=== PATIENT | female | born 1995 | race Caucasian/White ===

== ENCOUNTER 2018-10-27 10:35 | Inpatient (IN) | payer OTHER ==
[2018-10-27] VITALS (17 sets, daily range): BP systolic 85–118; BP diastolic 43–100
[~2018-10-27] VITALS: Ht 162.6 cm; Wt 72.6 kg
[2018-10-27] MEDS ORDERED: FOLI-43 PO (10:43)
[2018-10-27] MEDS ORDERED: PREN-99 MT (10:43)
[2018-10-27] MEDS ORDERED: OMEG100016 PO (10:44)
[2018-10-27] MEDS ORDERED: DEXT 5%/LR + PITOCIN 20UNITS/L 1,000 ML IV SCH ×2 (11:40→16:30)
[2018-10-27] MEDS ORDERED: MISOPROSTOL 100MCG TABLET VG SCH (11:45)
[2018-10-27] MEDS ORDERED: BUTORPHANOL TARTRATE 2 MG/ML VIAL IV PRN (11:45)
[2018-10-27] MEDS ORDERED: CARBOPROST TROMETHAMINE 250 MCG/ML AMPUL IM PRN (11:45)
[2018-10-27] MEDS ORDERED: LIDOCAINE HCL 1% 20ML VIAL (Pyxis) INJ INFIL SCH (11:45)
[2018-10-27] MEDS: LACTATED RINGERS 1,000 ML IV SCH ×2 (11:45→12:27)
[2018-10-27] MEDS ORDERED: NALOXONE HCL 0.4 MG/ML 1ML VIAL IM PRN (11:45)
[2018-10-27] MEDS ORDERED: METHYLERGONOVINE MALEATE 0.2 MG/ML IM PRN (11:45)
[2018-10-27 12:17] LABS: CLARITY URINE CLEAR (CLEAR); COLOR URINE YELLOW (YELLOW); KETONES URINE NEGATIVE (NEGATIVE); LEUKOCYTE ESTERASE URINE NEGATIVE (NEGATIVE); NITRITE URINE NEGATIVE (NEGATIVE); OCCULT BLOOD URINE NEGATIVE (NEGATIVE); PH URINE 7.5 (4.5-8.0); PROTEIN URINE NEGATIVE (NEGATIVE); SPECIFIC GRAVITY URINE 1.018 (1.005-1.030); UROBILINOGEN URINE 0.2 E.U./dL (0.2-1.0)
[2018-10-27 12:19] LABS: HEMATOCRIT. 41.9 % (36.0-48.0); HEMOGLOBIN. 14.1 g/dL (12.0-16.0); MEAN CORPUSCULAR HEMOGLOBIN 30.6 pg (28.0-32.0); MEAN CORPUSCULAR VOLUME 91.3 fL (81.0-99.0); MEAN PLATELET VOLUME 11.6 fl (7.4-10.4); PLATELET 193 x1000/uL (130-400); RED BLOOD CELL COUNT 4.59 mill/uL (4.2-5.4)
[2018-10-27] MEDS ORDERED: ROPIVACAINE HCL/PF EPIDURAL 200 ML EP SCH (12:30)
[2018-10-27 12:34] LABS: *BARBITURATES SCREEN URINE NEGATIVE (NEGATIVE)
[2018-10-27 12:35] LABS: INR 0.9; PARTIAL THROMBOPLASTIN TIME 30.4 sec (23.4-31.0); PROTHROMBIN TIME 9.2 sec (9.1-11.1)
[2018-10-27 12:35] LABS: *AMPHETAMINES SCREEN URINE NEGATIVE (NEGATIVE); *BENZODIAZEPINES SCREEN URINE NEGATIVE (NEGATIVE); *COCAINE SCREEN URINE NEGATIVE (NEGATIVE); METHADONE URINE SCREEN NEGATIVE (NEGATIVE); OPIATES URINE SCREEN NEGATIVE (NEGATIVE); PHENCYCLIDINE URINE SCREEN NEGATIVE (NEGATIVE)
[2018-10-27 12:36] LABS: CANNABINOID URINE SCREEN NEGATIVE (NEGATIVE)
[2018-10-27 12:56] LABS: PLATELET ESTIMATE NORMAL
[2018-10-27 13:13] LABS: HEPATITIS B SURFACE ANTIGEN NEGATIVE
[2018-10-27] MEDS ORDERED: LANOLIN OINT 0.25 GM TUBE TOP PRN (14:45)
[2018-10-27] MEDS ORDERED: TETANUS, DIPHTHERIA, PERTUSSIS VAC/PF 0.5ML (>7YR OLD) IM ONE (14:45)
[2018-10-27] MEDS ORDERED: DIPHENHYDRAMINE 25MG CAPSULE PO PRN (14:45)
[2018-10-27] MEDS ORDERED: RHO(D) IMMUNE GLOBULIN 300 MCG/SYR IM PRN (14:45)
[2018-10-27] MEDS ORDERED: BENZOCAINE/LANOLIN/ALOE VERA SPRAY TOP PRN (14:45)
[2018-10-27] MEDS ORDERED: ACETAMINOPHEN WITH CODEINE 300/30MG TABLET PO PRN (14:45)
[2018-10-27] MEDS ORDERED: GLYCERIN/WITCH HAZEL LEAF MEDICATED PAD TOP PRN (14:45)
[2018-10-27] MEDS ORDERED: BISACODYL 10MG SUPP PR PRN (14:45)
[2018-10-27] MEDS ORDERED: HEMORRHOIDAL SUPP PR PRN (14:45)
[2018-10-27] MEDS ORDERED: IBUPROFEN 400MG TABLET PO PRN (16:24)
[2018-10-27] MEDS ORDERED: INFLUENZA VIRUS VACCINE(AFLURIA) 0.5ML SYR IM ONE (17:03)
[2018-10-27] MEDS: IBUPROFEN 800MG TABLET PO PRN (19:00)
[2018-10-27 19:51] LABS: HEMATOCRIT. 35.9 % (36.0-48.0); MEAN CORPUSCULAR HEMOGLOBIN 30.5 pg (28.0-32.0); MEAN CORPUSCULAR VOLUME 91.3 fL (81.0-99.0); PLATELET 197 x1000/uL (130-400); RED BLOOD CELL COUNT 3.93 mill/uL (4.2-5.4); RED CELL DISTRIBUTION WIDTH 13.9 % (11.6-14.6)
[2018-10-27 20:01] LABS: PLATELET ESTIMATE NORMAL
[2018-10-27] MEDS ORDERED: OXYTOCIN 10 UNITS/ML 1ML ONE (20:45)
[2018-10-27] MEDS ORDERED: MISOPROSTOL 200MCG TABLET ONE (20:57)
[2018-10-27] MEDS ORDERED: MISOPROSTOL 200MCG TABLET PO NR (21:00)
[2018-10-27] MEDS ORDERED: DOCUSATE SODIUM 100MG CAPSULE PO SCH (21:00)
[2018-10-27] MEDS ORDERED: SODIUM CHLORIDE 0.9% 1,000 ML IV SCH (21:15)
[2018-10-27] MEDS ORDERED: FENTANYL CITRATE/PF 50MCG/ML 2ML VIAL ONE ×2 (23:35→23:48)
[2018-10-27] MEDS ORDERED: MIDAZOLAM HCL 2 MG/2 ML VIAL ONE (23:48)
[2018-10-28] VITALS (9 sets, daily range): BP systolic 84–102; BP diastolic 46–66
[2018-10-28 01:10] LABS: BASOPHILS % 0.2 % (0.0-2.0); EOSINOPHILS % 0.1 % (0.0-5.0); HEMATOCRIT. 29.3 % (36.0-48.0); HEMOGLOBIN. 9.9 g/dL (12.0-16.0); LYMPHOCYTES % 13.2 % (20.0-50.0); MEAN CORPUSCULAR HEMOGLOBIN 30.8 pg (28.0-32.0); MEAN CORPUSCULAR VOLUME 91.2 fL (81.0-99.0); MEAN PLATELET VOLUME 11.3 fl (7.4-10.4); NEUTROPHILS % 77.5 % (40.0-76.0); PLATELET 141 x1000/uL (130-400); RED BLOOD CELL COUNT 3.22 mill/uL (4.2-5.4); RED CELL DISTRIBUTION WIDTH 13.8 % (11.6-14.6)
[2018-10-28 06:10] LABS: BASOPHILS % 0.2 % (0.0-2.0); EOSINOPHILS % 0.2 % (0.0-5.0); HEMOGLOBIN. 8.8 g/dL (12.0-16.0); LYMPHOCYTES % 16.7 % (20.0-50.0); MEAN CORPUSCULAR HEMOGLOBIN 31.3 pg (28.0-32.0); MEAN CORPUSCULAR VOLUME 92.2 fL (81.0-99.0); MEAN PLATELET VOLUME 11.6 fl (7.4-10.4); MONOCYTES % 9.2 % (2.0-8.0); NEUTROPHILS % 73.7 % (40.0-76.0); PLATELET 133 x1000/uL (130-400); RED BLOOD CELL COUNT 2.83 mill/uL (4.2-5.4); RED CELL DISTRIBUTION WIDTH 13.8 % (11.6-14.6)
[2018-10-28] MEDS: FERROUS SULFATE 325MG TABLET PO SCH ×3 (08:48→18:44)
[2018-10-28] MEDS: PRENATAL VIT/FE FUMARATE/FA TABLET PO SCH (08:48)
[2018-10-28] MEDS: METHYLERGONOVINE MALEATE 0.2MG TABLET PO SCH ×2 (10:32→18:44)
[2018-10-28] MEDS: IBUPROFEN 800MG TABLET PO PRN ×2 (12:30→19:58)
[2018-10-29] MEDS: METHYLERGONOVINE MALEATE 0.2MG TABLET PO SCH (02:32)
[2018-10-29 04:00] VITALS: BP 94/57
[2018-10-29] MEDS: IBUPROFEN 800MG TABLET PO PRN ×2 (04:20→10:16)
[2018-10-29] MEDS: PRENATAL VIT/FE FUMARATE/FA TABLET PO SCH (10:15)
[2018-10-29] MEDS: FERROUS SULFATE 325MG TABLET PO SCH (10:15)
[2018-10-29 10:16] VITALS: BP 94/57
== END 2018-10-29 11:00 | disposition home or self-care (01) | DRG 560 ==
LOC: 8 EST LDRP 10:35 → OBSVTOIN 10:35 → 8EST 16:30
PROVIDERS: ADMIT Specialist; ATTEND Specialist
PROC: 10E0XZZ Delivery of Products of Conception, External Approach (ICD-10-PCS; principal; 2018-10-27)
PROC: 3E0234Z Introduction of Serum, Toxoid and Vaccine into Muscle, Percutaneous Approach (ICD-10-PCS; 2018-10-28)
DX: O72.1 Other immediate postpartum hemorrhage (principal); D64.9 Anemia, unspecified; O99.03 Anemia complicating the puerperium; Z37.0 Single live birth; Z3A.40 40 weeks gestation of pregnancy; Z67.31 Type AB blood, Rh negative
CPT/HCPCS: 36415; 80305; 85007; 85027; 86592; 86703; 86762; 86850; 86886; 86900; 86920; 87340; 90384; 90715; 99281; J0595; J2210; J2250; J2590; J3010; J3490; J7030; J7120